=== PATIENT | male | born 1975 | race Caucasian/White ===

== ENCOUNTER 2018-01-06 22:11 | Emergency (ER) | payer MEDICAID ==
[2018-01-06] MEDS ORDERED: Albuterol/Ipratropium 3.0-0.5 MG/3 ML Neb Soln NEB ONE (22:57)
--- NOTE | 2018-01-06 23:02 | EDM.PDOC ---
ED HPI GENERAL MEDICAL PROBLEM - General Chief Complaint: Respiratory Problem Stated Complaint: SOB Time Seen by Provider: 01/06/18 22:50 Source of Information: Reports: Patient, Old Records, RN History Limitations: Reports: No Limitations - History of Present Illness INITIAL COMMENTS - FREE TEXT/NARRATIVE: 42 yo male with a pHx of mild asthma has recently developed a cold and now has a cough, wheezing, and SOB. No fever. Is out of his albuterol. Cough non- productive. Onset: Gradual Onset Date: 01/05/18 Duration: Hour(s):, Getting Worse Location: Reports: Chest Severity: Moderate Improves with: Reports: Rest Worsens with: Reports: Movement Context: Reports: Other (Hx of asthma, current URI sx's) Associated Symptoms: Reports: Cough, Shortness of Breath. 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) (none) denies pain Pain Score (Numeric/FACES): 0 - Related Data Allergies Allergy/AdvReac Type Severity Reaction Status Date / Time No Known Allergies Allergy Verified 01/06/18 22:42 Home Meds: Home Meds Albuterol Sulfate [Proair Hfa] 2 inh IH Q2H PRN 01/06/18 [History] Omeprazole [priLOSEC OTC] 20 mg PO DAILY 01/06/18 [History] Past Medical History HEENT History: Reports: Impaired Vision Respiratory History: Reports: Asthma Endocrine/Metabolic History: Reports: Obesity/BMI 30+ Dermatologic History: Reports: Eczema - Infectious Disease History Infectious Disease History: Reports: Chicken Pox - Past Surgical History HEENT Surgical History: Reports: Adenoidectomy, Tonsillectomy Neurological Surgical History: Reports: Laminectomy Musculoskeletal Surgical History: Reports: Other (See Below) Other Musculoskeletal Surgeries/Procedures:: Right ACL replacement Social & Family History - Tobacco Use Smoking Status *Q: Never Smoker - Caffeine Use Caffeine Use: Reports: Coffee, Tea - Recreational Drug Use Recreational Drug Use: No ED ROS GENERAL - Review of Systems Review Of Systems: See Below Constitutional: Reports: No Symptoms HEENT: Reports: Rhinitis. Denies: Ear Discharge, Ear Pain, Throat Pain Respiratory: Reports: Shortness of Breath, Wheezing, Cough Cardiovascular: Reports: No Symptoms GI/Abdominal: Reports: No Symptoms : Reports: No Symptoms Musculoskeletal: Reports: No Symptoms Skin: Reports: No Symptoms Neurological: Reports: No Symptoms ED EXAM, GENERAL - Physical Exam Exam: See Below Exam Limited By: No Limitations General Appearance: Alert, WD/WN, No Apparent Distress Eye Exam: Bilateral Eye: Normal Inspection Ears: Normal External Exam, Normal Canal, Hearing Grossly Normal, Normal TMs Ear Exam: Bilateral Ear: Auricle Normal, Canal Normal, TM normal Nose: Clear Rhinorrhea Throat/Mouth: Normal Inspection, Normal Lips, Normal Oropharynx, Normal Voice, No Airway Compromise Head: Atraumatic, Normocephalic Neck: Normal Inspection, Supple, Non-Tender Respiratory/Chest: No Respiratory Distress, No Accessory Muscle Use, Decreased Breath Sounds Cardiovascular: Regular Rate, Rhythm, No Edema GI/Abdominal: Normal Bowel Sounds, Soft, Non-Tender, No Distention Extremities: Normal Inspection Neurological: Alert, Oriented, CN II-XII Intact, Normal Cognition, No Motor/ Sensory Deficits Psychiatric: Normal Affect, Normal Mood Skin Exam: Warm, Dry, Intact, Normal Color, No Rash Course - Vital Signs Text/Narrative:: Less coughing and less SOB after neb, moving more air on auscultation. Last Recorded V/S: Last Vital Signs Temp 36.9 C 01/06/18 22:58 Pulse 82 01/06/18 22:58 Resp 20 01/06/18 22:58 BP 141/85 H 01/06/18 22:58 Pulse Ox 94 L 01/06/18 22:58 - Orders/Labs/Meds Orders: Active Orders 24 hr Category Date Time Status RT Aerosol Therapy [RC] ASDIRECTED Care 01/06/18 22:57 Active Meds: Medications Discontinued Medications Generic Name Dose Route Start Last Admin Trade Name Mary PRN Reason Stop Dose Admin Albuterol/Ipratropium 3 ml 01/06/18 22:57 01/06/18 23:00 Duoneb 3.0-0.5 Mg/3 Ml NEB 01/06/18 22:58 3 ml ONETIME ONE Administration Departure - Departure Time of Disposition: 23:21 Disposition: Home, Self-Care 01 Condition: Good Clinical Impression: Viral URI with cough, Bronchospasm - Discharge Information Referrals: PCP,None [Primary Care Provider] - Forms: ED Department Discharge - My Orders Last 24 Hours: My Active Orders 01/06/18 22:57 RT Aerosol Therapy [RC] ASDIRECTED - Assessment/Plan Last 24 Hours: My Active Orders 01/06/18 22:57 RT Aerosol Therapy [RC] ASDIRECTED
== END 2018-01-06 23:36 | disposition home or self-care (01) ==
LOC: JP.ED 22:11
DX: J98.01 Acute bronchospasm (principal); J06.9 Acute upper respiratory infection, unspecified; Z79.899 Other long term (current) drug therapy
CPT/HCPCS: 94640; 99284; J7620; 99283

== ENCOUNTER 2020-11-01 15:57 | Emergency (ER) | payer MEDICAID ==
--- NOTE | 2020-11-01 16:41 | EDM.PDOC ---
ED HPI GENERAL MEDICAL PROBLEM - General Chief Complaint: ENT Problem Stated Complaint: RIGHT SIDE OF FACE SWOLLEN Time Seen by Provider: 11/01/20 16:23 Source of Information: Reports: Patient, RN Notes Reviewed History Limitations: Reports: No Limitations - History of Present Illness INITIAL COMMENTS - FREE TEXT/NARRATIVE: 45-year-old gentleman presents emergency department today complaint of paralysis to the right side of his face, he states it started about 3 days ago has progressively gotten worse he has difficulty smiling he also complains of some numbness and tingling on that side of his face he is not sure if he has felt feverish at home no other symptoms at this time - Related Data Allergies Allergy/AdvReac Type Severity Reaction Status Date / Time No Known Allergies Allergy Verified 11/01/20 16:10 Home Meds: Home Meds Albuterol Sulfate [Proair Hfa] 2 inh IH Q2H PRN 01/06/18 [History] Omeprazole [priLOSEC OTC] 20 mg PO DAILY 01/06/18 [History] Terbinafine [LamISIL] 1 tab PO DAILY 11/01/20 [History] predniSONE 60 mg PO DAILY 3 Days #9 tab 11/01/20 [Rx] valACYclovir [Valtrex] 1,000 mg PO TID #21 tab 11/01/20 [Rx] Past Medical History HEENT History: Reports: Impaired Vision Respiratory History: Reports: Asthma Endocrine/Metabolic History: Reports: Obesity/BMI 30+ Dermatologic History: Reports: Eczema - Infectious Disease History Infectious Disease History: Reports: Chicken Pox - Past Surgical History HEENT Surgical History: Reports: Adenoidectomy, Tonsillectomy Neurological Surgical History: Reports: Laminectomy Musculoskeletal Surgical History: Reports: Other (See Below) Other Musculoskeletal Surgeries/Procedures:: Right ACL replacement Social & Family History - Tobacco Use Tobacco Use Status *Q: Current Some Day Tobacco User Years of Tobacco use: 20 Packs/Tins Daily: 0.1 - Caffeine Use Caffeine Use: Reports: Coffee, Tea ED ROS ENT - Review of Systems Review Of Systems: See Below Constitutional: Reports: No Symptoms HEENT: Reports: Other (Difficulty smiling) Respiratory: Reports: No Symptoms Cardiovascular: Reports: No Symptoms GI/Abdominal: Reports: No Symptoms Neurological: Reports: Numbness, Tingling ED EXAM, ENT - Physical Exam Exam: See Below Text/Narrative:: Examination of the face pupils are equal round reactive extraocular eye movements are intact when asked him to smile the right side of the forehead does not respond nor does the right side of the face. He can close his eyes however the right side is significantly weaker than the left. Exam Limited By: No Limitations General Appearance: Alert, WD/WN, No Apparent Distress Mouth/Throat: Normal Inspection, Normal Gums, Normal Oropharynx, Other (Dentition is poor) Head: Atraumatic, Normocephalic Neck: Normal Inspection, Supple, Non-Tender, Full Range of Motion Respiratory/Chest: No Respiratory Distress, Lungs Clear, Normal Breath Sounds, No Accessory Muscle Use, Chest Non-Tender Cardiovascular: Regular Rate, Rhythm, No Murmur Course - Vital Signs Last Recorded V/S: Last Vital Signs Temp 99.7 F 11/01/20 16:22 Pulse 92 11/01/20 16:22 Resp 16 11/01/20 16:22 BP 158/97 H 11/01/20 16:22 Pulse Ox 100 11/01/20 16:22 - Orders/Labs/Meds Labs: Laboratory Tests 11/01/20 11/01/20 11/01/20 Range/Units 16:50 16:50 16:50 WBC 5.7 (4.5-11.0) K/uL RBC 4.96 (4.30-5.90) M/uL Hgb 15.0 (12.0-15.0) g/dL Hct 44.4 (40.0-54.0) % MCV 90 (80-98) fL MCH 30 (27-31) pg MCHC 34 (32-36) % Plt Count 210 (150-400) K/uL Neut % (Auto) 57 (36-66) % Lymph % (Auto) 28 (24-44) % [place] % (Auto) 10 H (2-6) % Eos % (Auto) 5 H (2-4) % Baso % (Auto) 0 (0-1) % Sodium 138 L (140-148) mmol/L Potassium 3.9 (3.6-5.2) mmol/L Chloride 101 (100-108) mmol/L Carbon Dioxide 26 (21-32) mmol/L Anion Gap 14.9 H (5.0-14.0) mmol/L BUN 14 (7-18) mg/dL Creatinine 1.0 (0.8-1.3) mg/dL Est Cr Clr Drug Dosing 115.09 mL/min Estimated GFR (MDRD) > 60 (>60) Glucose 102 (74-106) mg/dL Calcium 9.1 (8.5-10.1) mg/dL Total Bilirubin 0.6 (0.2-1.0) mg/dL AST 13 L (15-37) U/L ALT 33 (12-78) U/L Alkaline Phosphatase 105 (46-116) U/L C-Reactive Protein 0.97 H (0.0-0.3) mg/dL Total Protein 6.9 (6.4-8.2) g/dL Albumin 3.9 (3.4-5.0) g/dL Globulin 3.0 (2.3-3.5) g/dL Albumin/Globulin Ratio 1.3 (1.2-2.2) TSH, Ultra Sensitive 2.511 (0.358-3.740) uIU/mL SARS CoV-2 RNA Rapid CARROLL Negative Meds: Medications Discontinued Medications Generic Name Dose Route Start Last Admin Trade Name Humbleq PRN Reason Stop Dose Admin Prednisone 60 mg 11/01/20 17:45 Prednisone PO 11/01/20 17:46 ONETIME ONE Valacyclovir HCl 1,000 mg 11/01/20 17:45 Valtrex PO 11/01/20 17:46 NOW STA Departure - Departure Time of Disposition: 17:49 Disposition: Home, Self-Care 01 Condition: Fair Clinical Impression: Pike's palsy - Discharge Information Prescriptions: predniSONE 60 mg PO DAILY 3 Days #9 tab valACYclovir [Valtrex] 1,000 mg PO TID #21 tab Instructions: Pike Palsy, Adult Referrals: PCP,None [Primary Care Provider] - Forms: ED Department Discharge Additional Instructions: Take the prednisone for 3 more days, start the Valtrex tomorrow for a total of 1 week's time, recommend starting the eye ointment to lubricate her right eye, please followup with your primary care provider in 3-5 days if not better, please call return to the emergency department with worsening of symptoms. [facility] Note (ED) - Evaluation Sepsis Screening Result: No Definite Risk - Focused Exam Vital Signs: Vital Signs Temp Pulse Resp BP Pulse Ox 11/01/20 16:22 99.7 F 92 16 158/97 H 100 11/01/20 16:06 99.7 F 92 16 158/97 H 100 - Assessment/Plan Plan: Assessment Acuity = acute Site and laterality = Pike's palsy right side Etiology = unknown Manifestations = facial paralysis Location of injury = Home Lab values = CBC's CMP TSH CRP all within normal limits Covid was negative Plan He was given 60 mg dose of prednisone now prednisone 60 mg p.o. daily x3 days sent to [facility] Valtrex 1000 mg p.o. 3 times daily x7 days also sent to [facility] follow-up primary care 3 to 5 days if not better This note was dictated using babbel voice recognition software please call with any questions on syntax or grammar.
[2020-11-01] MEDS ORDERED: valACYclovir 1,000 MG Tab PO STA (17:45)
[2020-11-01] MEDS ORDERED: predniSONE 20 MG Tab PO ONE (17:45)
== END 2020-11-01 18:05 | disposition home or self-care (01) ==
LOC: JP.ED 15:57
DX: G51.0 Bell's palsy (principal); Z20.822 Contact with and (suspected) exposure to COVID-19; Z72.0 Tobacco use; J45.909 Unspecified asthma, uncomplicated; E66.9 Obesity, unspecified; Z68.33 Body mass index [BMI] 33.0-33.9, adult; Z79.899 Other long term (current) drug therapy
CPT/HCPCS: 36415; 80053; 84443; 85025; 86140; 87635; 99284; A9270; J7512; U0002

== ENCOUNTER 2024-10-11 10:34 | Observation (INO) | payer MEDICAID ==
[2024-10-11] MEDS ORDERED: Naloxone 0.4 MG/ML SDV IVPUSH PRN (12:02)
[2024-10-11 12:15] LABS: BASOPHILS ABSOLUTE AUTO 0.03 K/uL (0.00-0.10); BASOPHILS PERCENT AUTO 0.2 % (0.1-1.3); EOSINOPHILS ABSOLUTE AUTO 0.23 K/uL (0.00-0.40); EOSINOPHILS PERCENT AUTO 1.8 % (0.0-5.4); HEMATOCRIT 44.2 % (38.4-49.7); HEMOGLOBIN 15.8 g/dL (12.9-16.9); IMMATURE GRAN ABSOLUTE AUTO 0.03 K/uL (0.00-0.23); IMMATURE GRAN PERCENT AUTO 0.2 % (0.0-0.7); LYMPHOCYTES ABSOLUTE AUTO 1.25 K/uL (0.8-3.3); LYMPHOCYTES PERCENT AUTO 9.6 % (11.4-47.7); MEAN CORPUSCULAR HEMOGLOBIN 31.2 pg (31.6-35.5); MEAN CORPUSCULAR HGB CONC 35.7 g/dL (31.6-35.5); MEAN CORPUSCULAR VOLUME 87.4 fL (81.4-99.0); MONOCYTES ABSOLUTE AUTO 0.97 K/uL (0.20-0.90); MONOCYTES PERCENT AUTO 7.4 % (3.3-12.6); NEUTROPHILS ABSOLUTE AUTO 10.53 K/uL (1.0-7.6); NEUTROPHILS PERCENT AUTO 80.8 % (40.0-78.1); PLATELET COUNT,PLT 204 K/uL (130-375); RED BLOOD CELL COUNT 5.06 M/uL (4.14-5.76)
[2024-10-11] MEDS: HYDROmorphone 1 MG/ML Syringe IVPUSH ONE (12:15)
[2024-10-11] MEDS: Ondansetron 4 MG/2 ML SDV IVPUSH ONE (12:18)
[2024-10-11] MEDS: Lactated Ringers 1,000 ML IV SCH (12:21)
[2024-10-11] MEDS: Sodium Chloride 0.9% 10 ML Syringe FLUSH PRN (12:32)
[2024-10-11] MEDS: Iopamidol 612 MG/ML 100 ML Bottle IV PRN (12:32)
[2024-10-11] MEDS: Sodium Chloride 0.9% 80 ML IV SCH (12:32)
[2024-10-11 12:34] LABS: PTT,PARTIAL THROMBOPLSTIN TIME 29.6 sec (21.8-27.3)
[2024-10-11 12:40] LABS: A/G RATIO 1.2 (1.2-2.2); ALANINE AMINOTRANSFERASE,ALT 30 U/L (12-78); ALBUMIN 4.1 g/dL (3.4-5.0); ALKALINE PHOSPHATASE 132 U/L (46-116); ASPARTATE AMNIOTRANSFERASE,AST 13 U/L (15-37); BILIRUBIN TOTAL 0.6 mg/dL (0.2-1.0); BLOOD UREA NITROGEN,BUN 12 mg/dL (7-18); C-REACTIVE PROTEIN 5.89 mg/dL (<0.50); CALCIUM 9.5 mg/dL (8.5-10.1); CARBON DIOXIDE,CO2 29 mmol/L (21-32); CHLORIDE,CL 99 mmol/L (100-108); CREATININE 1.1 mg/dL (0.8-1.3); EST CRCL DRUG DOSING (CG) 102.71 mL/min; ESTIMATED GFR 81 mL/min (>60); GLUCOSE RANDOM 123 mg/dL (74-106); POTASSIUM,K 3.9 mmol/L (3.6-5.2); PROTEIN TOTAL,TP 7.5 g/dL (6.4-8.2); SODIUM,NA 138 mmol/L (140-148)
[2024-10-11 12:41] LABS: ANION GAP 13.9 mmol/L (5.0-14.0)
[2024-10-11] MEDS ORDERED: Piperacillin/Tazobactam 3.375 GM in Sodium Chloride 0.9% 50 ML IV ONE (13:30)
[2024-10-11] MEDS: Ketorolac 30 MG/ML SDV IVPUSH ONE (13:46)
[2024-10-11] MEDS ORDERED: Indocyanine Green 25 MG SDV ONE (13:59)
[2024-10-11] MEDS: Prochlorperazine 10 MG/2 ML SDV IVPUSH ONE (14:09)
[2024-10-11] MEDS: Piperacillin/Tazobactam/Dext 4.5 GM in Premix Bag 1 BAG IV ONE (14:12)
[2024-10-11] MEDS ORDERED: fentaNYL 250 MCG/5 ML SDV ONE ×2 (14:24→15:23)
[2024-10-11] MEDS: Sodium Chloride 0.9% 10 ML Syringe FLUSH ONE (14:24)
[2024-10-11] MEDS ORDERED: Ondansetron 4 MG/2 ML SDV ONE (14:25)
[2024-10-11] MEDS ORDERED: Propofol 200 MG/20 ML SDV ONE (14:25)
[2024-10-11] MEDS ORDERED: Glycopyrrolate 0.2 MG/ML 5 ML MDV ONE (14:25)
[2024-10-11] MEDS ORDERED: Dexamethasone 4 MG/ML SDV ONE (14:25)
[2024-10-11] MEDS ORDERED: Rocuronium 50 MG/5 ML Vial ONE (14:25)
[2024-10-11] MEDS ORDERED: Succinylcholine 200 MG/10 ML MDV ONE (14:25)
[2024-10-11] MEDS ORDERED: Neostigmine Methylsulfate 10 MG/10 ML MDV ONE (14:25)
[2024-10-11] MEDS: Bupivacaine 0.25%/EPINEPHrine 1:200,000 30 ML SDV ONE (15:22)
[2024-10-11] MEDS: Indocyanine Green 25 MG SDV IV ONE (15:24)
[2024-10-11] MEDS: Albuterol/Ipratropium 3.0-0.5 MG/3 ML Neb Soln NEB ONE (16:26)
[2024-10-11] MEDS ORDERED: Albuterol 6.7 GM Inhaler INH PRN (16:44)
[2024-10-11] MEDS ORDERED: Ondansetron 4 MG/2 ML SDV IV PRN (16:45)
[2024-10-11] MEDS: Piperacillin/Tazobactam/Dext 4.5 GM in Premix Bag 1 BAG IV SCH (18:07)
[2024-10-11] MEDS: Acetaminophen 500 MG Tab PO SCH (20:02)
[2024-10-11] MEDS: Docusate Sodium 100 MG Cap PO SCH (20:02)
[2024-10-11] MEDS: oxyCODONE 5 MG Tab PO PRN (22:15)
[2024-10-12 05:51] LABS: BASOPHILS PERCENT AUTO 0.2 % (0.1-1.3); EOSINOPHILS ABSOLUTE AUTO 0.04 K/uL (0.00-0.40); EOSINOPHILS PERCENT AUTO 0.3 % (0.0-5.4); HEMATOCRIT 38.6 % (38.4-49.7); HEMOGLOBIN 13.5 g/dL (12.9-16.9); IMMATURE GRAN ABSOLUTE AUTO 0.05 K/uL (0.00-0.23); IMMATURE GRAN PERCENT AUTO 0.4 % (0.0-0.7); LYMPHOCYTES ABSOLUTE AUTO 1.45 K/uL (0.8-3.3); LYMPHOCYTES PERCENT AUTO 11.8 % (11.4-47.7); MEAN CORPUSCULAR HEMOGLOBIN 30.8 pg (31.6-35.5); MEAN CORPUSCULAR VOLUME 88.1 fL (81.4-99.0); MONOCYTES ABSOLUTE AUTO 1.01 K/uL (0.20-0.90); MONOCYTES PERCENT AUTO 8.2 % (3.3-12.6); NEUTROPHILS PERCENT AUTO 79.1 % (40.0-78.1); PLATELET COUNT,PLT 168 K/uL (130-375); RED BLOOD CELL COUNT 4.38 M/uL (4.14-5.76); WHITE BLOOD CELL COUNT,WBC 12.3 K/uL (3.2-11.0)
[2024-10-12 05:54] LABS: BASOPHILS ABSOLUTE AUTO 0.02 K/uL (0.00-0.10)
[2024-10-12] MEDS: Pantoprazole 40 MG Tab.CR PO SCH (08:33)
[2024-10-12] MEDS ORDERED: Calcium Carbonate 500 MG Tab.Chew PO PRN (12:15)
== END 2024-10-12 13:10 | disposition home or self-care (01) ==
LOC: JP.ED 10:34 → JP.SDS 14:51 → JP.ED 14:51 → JP.MS 16:41
PROVIDERS: ADMIT Surgery; ATTEND Surgery
DX: K80.00 Calculus of gallbladder with acute cholecystitis without obstruction (principal); K82.A1 Gangrene of gallbladder in cholecystitis; K82.8 Other specified diseases of gallbladder; J45.909 Unspecified asthma, uncomplicated; K21.9 Gastro-esophageal reflux disease without esophagitis; F17.210 Nicotine dependence, cigarettes, uncomplicated; Z79.899 Other long term (current) drug therapy
CPT/HCPCS: 36415; 47563; 74177; 80053; 83690; 84484; 85025; 85610; 85730; 86140; 88304; 88313; 96365; 96375; 99285; A9270; J0330; J0780; J1100; J1171; J1596; J1885; J2405; J2543; J2704; J2710; J3010; J7120; Q9967; 00790-QZ; 93010; 99222; J3490

== ENCOUNTER 2024-10-29 11:09 | Emergency (ER) | payer MEDICAID ==
[2024-10-29 12:23] LABS: BASOPHILS ABSOLUTE AUTO 0.04 K/uL (0.00-0.10); BASOPHILS PERCENT AUTO 0.4 % (0.1-1.3); EOSINOPHILS PERCENT AUTO 4.4 % (0.0-5.4); HEMOGLOBIN 11.9 g/dL (12.9-16.9); IMMATURE GRAN ABSOLUTE AUTO 0.06 K/uL (0.00-0.23); IMMATURE GRAN PERCENT AUTO 0.7 % (0.0-0.7); LYMPHOCYTES ABSOLUTE AUTO 1.53 K/uL (0.8-3.3); LYMPHOCYTES PERCENT AUTO 16.8 % (11.4-47.7); MEAN CORPUSCULAR HEMOGLOBIN 30.4 pg (31.6-35.5); MEAN CORPUSCULAR VOLUME 89.5 fL (81.4-99.0); MONOCYTES ABSOLUTE AUTO 0.71 K/uL (0.20-0.90); MONOCYTES PERCENT AUTO 7.8 % (3.3-12.6); NEUTROPHILS ABSOLUTE AUTO 6.37 K/uL (1.0-7.6); NEUTROPHILS PERCENT AUTO 69.9 % (40.0-78.1); PLATELET COUNT,PLT 407 K/uL (130-375); RED BLOOD CELL COUNT 3.91 M/uL (4.14-5.76); WHITE BLOOD CELL COUNT,WBC 9.1 K/uL (3.2-11.0)
[2024-10-29 12:45] LABS: A/G RATIO 0.5 (1.2-2.2); ALANINE AMINOTRANSFERASE,ALT 29 U/L (12-78); ALBUMIN 2.3 g/dL (3.4-5.0); ALKALINE PHOSPHATASE 179 U/L (46-116); ASPARTATE AMNIOTRANSFERASE,AST 20 U/L (15-37); BILIRUBIN TOTAL 0.3 mg/dL (0.2-1.0); BLOOD UREA NITROGEN,BUN 9 mg/dL (7-18); CARBON DIOXIDE,CO2 33 mmol/L (21-32); CHLORIDE,CL 100 mmol/L (100-108); CREATININE 0.9 mg/dL (0.8-1.3); EST CRCL DRUG DOSING (CG) 122.38 mL/min; ESTIMATED GFR 103 mL/min (>60); GLUCOSE RANDOM 96 mg/dL (74-106); POTASSIUM,K 4.5 mmol/L (3.6-5.2); PROTEIN TOTAL,TP 6.7 g/dL (6.4-8.2); SODIUM,NA 139 mmol/L (140-148)
[2024-10-29 12:47] LABS: ANION GAP 10.5 mmol/L (5.0-14.0)
[2024-10-29] MEDS ORDERED: Sodium Chloride 0.9% 10 ML Syringe FLUSH PRN (12:57)
[2024-10-29] MEDS ORDERED: Sodium Chloride 0.9% 10 ML Syringe FLUSH ONE (13:23)
[2024-10-29] MEDS ORDERED: Iopamidol 612 MG/ML 100 ML Bottle IV SCH (13:45)
[2024-10-29] MEDS ORDERED: Sodium Chloride 0.9% 100 ML IV SCH (13:45)
[2024-10-29] MEDS: Iopamidol 612 MG/ML 100 ML Bottle IV SCH (14:47)
[2024-10-29] MEDS: Sodium Chloride 0.9% 10 ML Syringe FLUSH ONE (14:48)
[2024-10-29] MEDS: Sodium Chloride 0.9% 80 ML IV SCH (14:48)
[2024-10-29] MEDS ORDERED: Lidocaine 1% 20 ML MDV INJECT ONE (15:18)
== END 2024-10-29 17:11 | disposition home or self-care (01) ==
LOC: JP.ED 11:09
DX: R18.8 Other ascites (principal); J45.909 Unspecified asthma, uncomplicated; K21.9 Gastro-esophageal reflux disease without esophagitis; Z79.899 Other long term (current) drug therapy; Z79.51 Long term (current) use of inhaled steroids; Z90.49 Acquired absence of other specified parts of digestive tract
CPT/HCPCS: 36415; 49083; 74177; 76705; 80053; 82248; 83605; 85025; 99284; Q9967